=== PATIENT | male | born 1980 | race Caucasian/White ===

== ENCOUNTER 2021-03-13 20:54 | Emergency (ER) | payer MEDICAID ==
[~2021-03-13] VITALS: Ht 170.2 cm; Wt 109.0 kg
[2021-03-13 21:08] VITALS: BP 147/84
[2021-03-13] MEDS ORDERED: KETOROLAC 60MG/2ML VIAL IM ONE (22:30)
[2021-03-13] MEDS ORDERED: METHOCARBAMOL 500MG TABLET PO ONE (22:30)
[2021-03-14] MEDS ORDERED: METH-773 MT (00:01)
[2021-03-14] MEDS ORDERED: NAPR-681 MT (00:01)
== END 2021-03-14 00:30 | disposition home or self-care (01) ==
LOC: ER 20:54
DX: S39.012A Strain of muscle, fascia and tendon of lower back, initial encounter (principal); X50.0XXA Overexertion from strenuous movement or load, initial encounter; Y93.89 Activity, other specified; Y92.090 Kitchen in other non-institutional residence as the place of occurrence of the external cause; Z87.828 Personal history of other (healed) physical injury and trauma
CPT/HCPCS: 96372; 99283; J1885